=== PATIENT | female | born 1970 | race Caucasian/White ===

== ENCOUNTER 2016-08-31 08:26 | Emergency (ER) | payer MEDICAID, MEDICARE ==
[~2016-08-31] VITALS: Ht 170.2 cm; Wt 105.0 kg
[2016-08-31] MEDS ORDERED: HYDROmorphone 1 MG/ML, 1ML ONE ×2 (08:48→09:32)
[2016-08-31] MEDS ORDERED: ONDANSETRON 2MG/ML, 2ML ONE (08:48)
[2016-08-31] MEDS: HYDROmorphone 1 MG/ML, 1ML IVPush PRN ×2 (08:53→09:36)
[2016-08-31] MEDS ORDERED: SODIUM CHLORIDE 0.9% 1,000ML IVBOLUS ONE (09:00)
[2016-08-31] MEDS ORDERED: ONDANSETRON 2MG/ML, 2ML IVPush ONE (09:00)
[2016-08-31] MEDS ORDERED: SODIUM CHLORIDE FLUSH 10ML SYR IVF ONE (09:00)
[2016-08-31] MEDS ORDERED: morphine SULFATE 10 MG/ML, 1ML ONE (10:12)
[2016-08-31] MEDS: MORPHINE SULFATE 4 MG/ML, 1ML IVPush PRN ×2 (10:15→11:29)
[2016-08-31 10:16] LABS: BLOOD UREA NITROGEN 17 mg/dL (7-18)
[2016-08-31 10:20] LABS: ASPARTATE AMINO TRANSFERASE 5 U/L (15-37)
[2016-08-31] MEDS ORDERED: MORPHINE SULFATE 4 MG/ML, 1ML ONE (11:27)
[2016-08-31] MEDS ORDERED: OMNIPAQUE 350 MG/ML, 100ML BOTTLE ONE (13:05)
[2016-08-31] MEDS ORDERED: MULT-707 PO (13:06)
[2016-08-31] MEDS ORDERED: ASPI-614 PO (13:06)
[2016-08-31 13:13] VITALS: BP 118/69
== END 2016-08-31 13:53 | disposition home or self-care (01) ==
LOC: ED 09:28
DX: R10.84 Generalized abdominal pain (principal)
CPT/HCPCS: 36415; 74020; 74174; 76830; 80053; 81001; 83605; 83690; 85025; 93005; 96361; 96374; 96375; 96376; 99285; J1170; J2405; J7030; Q9967

== ENCOUNTER 2016-12-14 09:21 | Inpatient (IN) | payer MEDICARE, MEDICAID ==
[~2016-12-14] VITALS: Ht 157.5 cm; Wt 92.8 kg
[~2016-12-14 09:21] MED LIST: ASPI-614 PO; MULT-707 PO
[2016-12-14] MEDS ORDERED: HYDR-3307 PO (09:30)
[2016-12-14] MEDS ORDERED: DIAZ10TA PO (09:30)
[2016-12-14] MEDS ORDERED: ONDA8TAB9 PO (09:30)
[2016-12-14] MEDS ORDERED: SODIUM CHLORIDE 0.9% 1,000ML IVBOLUS ONE (10:30)
[2016-12-14] MEDS ORDERED: ACETAMINOPHEN 650 MG SUPP ONE (10:39)
[2016-12-14] MEDS: ACETAMINOPHEN 650 MG SUPP PR PRN ×2 (10:41→21:09)
[2016-12-14] MEDS ORDERED: ZIPRASIDONE 20 MG INJ IM ONE ×2 (11:00→11:02)
[2016-12-14 11:24] LABS: HEMATOCRIT 44.9 % (34.6-47.8); HEMOGLOBIN 14.5 g/dL (11.7-16.4); WHITE BLOOD COUNT 11.2 x10^3/uL (3.4-10)
[2016-12-14 11:34] LABS: ASPARTATE AMINO TRANSFERASE 7 U/L (15-37); BLOOD UREA NITROGEN 15 mg/dL (7-18)
[2016-12-14] MEDS ORDERED: DIPHENHYDRAMINE 50 MG/ML, 1ML ONE (12:20)
[2016-12-14] MEDS ORDERED: DIPHENHYDRAMINE 50 MG/ML, 1ML IVPush ONE (12:30)
[2016-12-14] MEDS ORDERED: ONDANSETRON 2MG/ML, 2ML IVPush ONE (12:30)
[2016-12-14] MEDS ORDERED: ONDANSETRON 2MG/ML, 2ML ONE (12:49)
[2016-12-14] MEDS ORDERED: SODIUM CHLORIDE 0.9% 1,000 ML IV SCH ×2 (15:26→15:30)
[2016-12-14] MEDS ORDERED: hydrALAzine 20 MG/ML, 1ML IVPush PRN (15:30)
[2016-12-14] MEDS: ONDANSETRON 2MG/ML, 2ML IVPush PRN ×2 (15:46→22:34)
[2016-12-14] MEDS: LORazepam 2 MG/ML, 1ML IVPush PRN ×2 (15:49→23:41)
[2016-12-14] MEDS: KETOROLAC 30 MG/1 ML IVPush PRN ×2 (15:49→22:34)
[2016-12-14] MEDS: METHADONE 10 MG TABLET PO SCH (16:45)
[2016-12-14] MEDS: SODIUM CHLORIDE 0.9% 1,000 ML IV SCH ×2 (16:52→22:35)
[2016-12-14] MEDS: CEFTRIAXONE PMX 2GM/50ML 50 ML IV SCH (20:00)
[2016-12-14] MEDS: PANTOPRAZOLE 40 MG IV IVPush SCH (21:09)
[2016-12-15] MEDS: METHADONE 10 MG TABLET PO SCH ×3 (01:02→17:57)
[2016-12-15 02:56] VITALS: BP 111/74
[2016-12-15 05:22] LABS: HEMATOCRIT 38.3 % (34.6-47.8); HEMOGLOBIN 12.5 g/dL (11.7-16.4); WHITE BLOOD COUNT 17.5 x10^3/uL (3.4-10)
[2016-12-15 05:44] LABS: ASPARTATE AMINO TRANSFERASE 3 U/L (15-37); BLOOD UREA NITROGEN 15 mg/dL (7-18)
[2016-12-15] MEDS: SODIUM CHLORIDE 0.9% 1,000 ML IV SCH ×3 (06:34→19:10)
[2016-12-15 06:55] VITALS: BP 100/65
[2016-12-15] MEDS: PANTOPRAZOLE 40 MG IV IVPush SCH ×2 (09:54→21:37)
[2016-12-15] MEDS: ACETAMINOPHEN 650 MG SUPP PR PRN (10:10)
[2016-12-15] MEDS: ONDANSETRON 2MG/ML, 2ML IVPush PRN (10:10)
[2016-12-15 13:00] VITALS: BP 115/79
[2016-12-15 19:01] VITALS: BP 134/92
[2016-12-15] MEDS ORDERED: LIDOCAINE 1%, 20ML ONE (19:30)
[2016-12-15] MEDS: POTASSIUM CHLORIDE 40 MEQ in SODIUM CHLORIDE 0.9% 500 ML IV SCH (20:30)
[2016-12-15] MEDS: CEFTRIAXONE PMX 2GM/50ML 50 ML IV SCH (21:37)
[2016-12-15] MEDS: LORazepam 2 MG/ML, 1ML IVPush PRN (22:32)
[2016-12-16 01:17] VITALS: BP 109/73
[2016-12-16] MEDS: POTASSIUM CHLORIDE 40 MEQ in SODIUM CHLORIDE 0.9% 500 ML IV SCH (01:25)
[2016-12-16] MEDS: METHADONE 10 MG TABLET PO SCH ×3 (01:59→17:52)
[2016-12-16 04:44] LABS: HEMOGLOBIN 11.2 g/dL (11.7-16.4); WHITE BLOOD COUNT 9.2 x10^3/uL (3.4-10)
[2016-12-16 05:00] LABS: BLOOD UREA NITROGEN 10 mg/dL (7-18)
[2016-12-16] MEDS: SODIUM CHLORIDE 0.9% 1,000 ML IV SCH ×3 (05:29→18:14)
[2016-12-16 06:23] VITALS: BP 100/65
[2016-12-16] MEDS: PANTOPRAZOLE 40 MG IV IVPush SCH ×2 (07:52→21:17)
[2016-12-16] MEDS: LORazepam 2 MG/ML, 1ML IVPush PRN ×2 (10:17→20:01)
[2016-12-16 14:30] VITALS: BP 119/83
[2016-12-16 19:23] VITALS: BP 118/78
[2016-12-16] MEDS: CEFTRIAXONE PMX 2GM/50ML 50 ML IV SCH (21:18)
[2016-12-17] MEDS: SODIUM CHLORIDE 0.9% 1,000 ML IV SCH ×2 (01:09→09:08)
[2016-12-17] MEDS: METHADONE 10 MG TABLET PO SCH ×2 (01:53→09:56)
[2016-12-17 01:57] VITALS: BP 110/77
[2016-12-17 06:49] VITALS: BP 111/73
[2016-12-17] MEDS: PANTOPRAZOLE 40 MG IV IVPush SCH (09:08)
[2016-12-17] MEDS ORDERED: METH-356 PO (10:01)
[2016-12-17] MEDS ORDERED: LACT1CAP24 PO (10:01)
[2016-12-17] MEDS ORDERED: CEFD300C37 PO (10:01)
[2016-12-17] MEDS ORDERED: OMEP-110 PO (10:01)
[2016-12-17] MEDS ORDERED: KETO10TA PO (10:01)
[2016-12-17 13:01] VITALS: BP 133/94
== END 2016-12-17 15:21 | disposition home or self-care (01) | DRG 690 ==
LOC: ED 12:43 → EDIP 12:45 → ED 12:48 → 3NE 14:54
PROVIDERS: ADMIT Internal Medicine; ATTEND Internal Medicine
PROC: 02HV33Z Insertion of Infusion Device into Superior Vena Cava, Percutaneous Approach (ICD-10-PCS; principal; 2016-12-15)
PROC: B5181ZA Fluoroscopy of Superior Vena Cava using Low Osmolar Contrast, Guidance (ICD-10-PCS; 2016-12-15)
DX: N39.0 Urinary tract infection, site not specified (principal); E66.01 Morbid (severe) obesity due to excess calories; Z88.0 Allergy status to penicillin; Z88.8 Allergy status to other drugs, medicaments and biological substances; Z68.37 Body mass index [BMI] 37.0-37.9, adult; E87.6 Hypokalemia; G89.29 Other chronic pain; K31.84 Gastroparesis; Z76.5 Malingerer [conscious simulation]; Z90.49 Acquired absence of other specified parts of digestive tract; Z91.14 Patient's other noncompliance with medication regimen; N20.0 Calculus of kidney
CPT/HCPCS: 36415; 36569; 74020; 74176; 76937; 77001; 80048; 80053; 81001; 83690; 83735; 84100; 84443; 84703; 85025; 87040; 87086; 93005; 96361; 96372; 96374; 96375; J0696; J1885; J2405; J3480; J3486; J3490; C1751; C9113; J1200; J2060; J7030; J7040